=== PATIENT | male | born 1975 | race Caucasian/White ===

== ENCOUNTER 2020-09-21 18:42 | Emergency (ER) | payer SELFPAY ==
[2020-09-21 18:46] VITALS: TEMP 98.5; BMI 32.8
[2020-09-21 21:00] LABS: BASO % 0.6 % (0-2.0); EOS % 2.7 % (0-4.5); HEMATOCRIT 48.8 % (35.4-49); HEMOGLOBIN 16.4 GM/dL (11.7-16.9); LYMPH % 21.2 % (8-40); MCH 29.4 pg (25.7-33.7); MCHC 33.7 g/dl (32.0-35.9); MEAN CELL VOLUME 87.3 fl (80-96); MEAN PLT VOLUME 7.9 fl (7.5-11.1); MONO % 6.5 % (3.8-10.2); PLATELET COUNT 494 K/MM3 (134-434); RBC 5.59 M/mm3 (4.00-5.60); RDW 13.9 % (11.9-15.9); WHITE BLOOD COUNT 15.5 K/mm3 (4.0-10.0)
[2020-09-21] MEDS ORDERED: SODIUM CHLORIDE 1,000 ML IV STA (21:02)
[2020-09-21 21:18] LABS: CHLORIDE 103 mmol/L (98-107); SODIUM 136 mmol/L (136-145)
[2020-09-21 21:20] LABS: CALCIUM 10.2 mg/dL (8.5-10.1)
[2020-09-21 21:21] LABS: ALBUMIN 4.4 g/dl (3.4-5.0); ANION GAP 6 MMOL/L (8-16); BLOOD UREA NITROGEN 19.3 mg/dL (7-18); CO2 27 mmol/L (21-32); GLUCOSE,RANDOM 89 mg/dL (74-106)
[2020-09-21 21:24] LABS: CREATININE 1.3 mg/dL (0.55-1.3); SGOT/AST 25 U/L (15-37); SGPT/ALT 54 U/L (13-61)
[2020-09-21 21:26] LABS: BILIRUBIN,TOTAL 0.4 mg/dL (0.2-1); TOT PROT 8.3 g/dl (6.4-8.2)
[2020-09-21 21:27] LABS: ALK PHOS 88 U/L (45-117)
[2020-09-21 21:32] LABS: ANISOCYTOSIS 1+; MACROCYTOSIS 0; PLATELET ESTIMATE NORMAL
[2020-09-21 23:12] VITALS: BP 150/90; PULSE 85
== END 2020-09-21 23:15 | disposition home or self-care (01) ==
LOC: JER 18:42
PROC: 3E0337Z Introduction of Electrolytic and Water Balance Substance into Peripheral Vein, Percutaneous Approach (ICD-10-PCS; principal; 2020-09-21)
DX: R42 Dizziness and giddiness (principal); E86.0 Dehydration
CPT/HCPCS: 36415; 70450-TC; 71046-TC-FY; 80053; 82550; 82553; 83036; 84443; 84484; 85025; 93005; 93010; 99285-25